=== PATIENT | female | born 1995 | race Asian ===

== ENCOUNTER 2021-02-28 15:20 | Emergency (ER) | payer OTHER ==
[~2021-02-28] VITALS: Ht 149.9 cm; Wt 57.9 kg
[2021-02-28] MEDS ORDERED: FLUORESCEIN OPHTH 1 MG STRIP OU ONE (17:55)
[2021-02-28] MEDS ORDERED: TETRACAINE 0.5% OPHTH SOLN 4ML OU ONE (17:55)
[2021-02-28] MEDS ORDERED: KETOROLAC 0.5% OPHTH SOLN OU ONE (18:40)
[2021-02-28 19:01] VITALS: BP 117/72
== END 2021-02-28 19:03 | disposition home or self-care (01) ==
LOC: M ED 15:20
DX: H53.8 Other visual disturbances (principal); S05.91XA Unspecified injury of right eye and orbit, initial encounter; S05.92XA Unspecified injury of left eye and orbit, initial encounter; X58.XXXA Exposure to other specified factors, initial encounter; Y92.89 Other specified places as the place of occurrence of the external cause

== ENCOUNTER 2021-03-03 10:47 | Emergency (ER) | payer OTHER ==
[~2021-03-03] VITALS: Ht 149.9 cm; Wt 55.0 kg
[2021-03-03] MEDS ORDERED: ONDA4TAB6 PO (13:16)
[2021-03-03 13:30] VITALS: BP 135/91
== END 2021-03-03 13:31 | disposition home or self-care (01) ==
LOC: M ED 10:47
DX: S06.0X0A Concussion without loss of consciousness, initial encounter (principal); X58.XXXA Exposure to other specified factors, initial encounter; Y92.89 Other specified places as the place of occurrence of the external cause; Y93.9 Activity, unspecified; Y99.1 Military activity

== ENCOUNTER 2021-06-14 12:06 | Inpatient (IN) | payer OTHER ==
[~2021-06-14] VITALS: Ht 149.9 cm; Wt 57.3 kg
[2021-06-14] MEDS: SERTRALINE HCL 50 MG TAB PO SCH (09:00)
[~2021-06-14 12:06] MED LIST: ONDA4TAB6 PO
--- OUTSIDE RECORDS SUMMARY | 2021-06-14 12:10 | CCD ---
Author Author [facility] Address Unknown Phone Unavailable Support Name Relationship Address Phone [facility] Next Of Kin [address] [place] [address] Unavailable ABRAM JERNIGAN [place] [address] [place] [address] ABRAM [place]ERN[place] [address] [address] [place] [address] Unavailable Re-disclosure Warning The records that you are about to access may contain information from federally-assisted alcohol or drug abuse programs. If such information is present, then the following federally mandated warning applies: This information has been disclosed to you from records protected by federal confidentiality rules (42 CFR part 2). The federal rules prohibit you from making any further disclosure of this information unless further disclosure is expressly permitted by the written consent of the person to whom it pertains or as otherwise permitted by 42 CFR part 2. A general authorization for the release of medical or other information is NOT sufficient for this purpose. The Federal rules restrict any use of the information to criminally investigate or prosecute any alcohol or drug abuse patient.The records that you are about to access may contain highly sensitive health information, the redisclosure of which is protected by Article 27-F of the [facility] Public Health law. If you continue you may have access to information: Regarding HIV / AIDS; Provided by facilities licensed or operated by the [facility] Office of Mental Health; or Provided by the [facility] Office for People With Developmental Disabilities. If such information is present, then the following [facility] mandated warning applies: This information has been disclosed to you from confidential records which are protected by state law. State law prohibits you from making any further disclosure of this information without the specific written consent of the person to whom it pertains, or as otherwise permitted by law. Any unauthorized further disclosure in violation of state law may result in a fine or care home sentence or both. A general authorization for the release of medical or other information is NOT sufficient authorization for further disc losure. Medications No Information Insurance Providers Payer name Policy type / Coverage type Policy ID Covered green party ID Covered green party's relationship to silva Policy Silva Plan Information [facility] ACTIVE DUTY [id number] Problems, Conditions, and Diagnoses No Information Surgeries/Procedures No Information Results No Information Social History No Information
[2021-06-14] MEDS ORDERED: BCP PO (12:39)
[2021-06-14] MEDS ORDERED: ACETAMINOPHEN TAB 650MG DOSE (2X325MG) PO ONE (13:20)
--- OUTSIDE RECORDS SUMMARY | 2021-06-14 13:39 | CCD ---
Author Author [facility] Address Unknown Phone Unavailable Support Name Relationship Address Phone [facility] Next Of Kin [address] [place] [address] Unavailable ABRAM JERNIGAN Next Of Kin [address] [place] [address] ABRAM [place] [address] [address] [place] [address] Unavailable Re-disclosure Warning The records that you [...] is protected by Article 27-F of the [facility] Public Health law. If you continue you may have access to information: Regarding HIV / AIDS; Provided by facilities licensed or operated by the [facility] Office of Mental Health; or Provided by the [facility] Office for People With Developmental Disabilities. If such information is present, then the following [facility] mandated warning applies: This information has been [...] law may result in a fine or fpc sentence or both. A general authorization for the release of medical or other information is NOT sufficient authorization for further disc losure. Medications No Information Insurance Providers Payer name Policy type / Coverage type Policy ID Covered constitution party ID Covered constitution party's relationship to silva Policy Silva Plan Information [facility] ACTIVE DUTY [id number] Problems, Conditions, and Diagnoses No Information Surgeries/Procedures No Information Results No Information Social History No Information
[2021-06-14 14:04] LABS: HEMOGLOBIN 12.3 g/dl (12.0-15.5); MEAN CORPUSCULAR HEMOGLOBIN 30.8 pg (27.0-33.0); MEAN CORPUSCULAR HGB CONC 33.2 g/dl (32.0-36.5); MEAN CORPUSCULAR VOLUME 92.5 fl (80.0-96.0); PLATELET COUNT, AUTOMATED 307 10^3/uL (150-450); WHITE BLOOD COUNT 8.1 10^3/uL (4.0-10.0)
[2021-06-14 14:34] LABS: HCG, SERUM QUALITATIVE NEGATIVE (NEGATIVE)
[2021-06-14 14:47] LABS: ACETAMINOPHEN LEVEL < 2.0 UG/ML (10.0-30.0); ALBUMIN 3.6 GM/DL (3.2-5.2); ALT/SGPT 21 U/L (12-78); BILIRUBIN,DIRECT 0.1 MG/DL (0.0-0.2); BILIRUBIN,TOTAL 0.4 MG/DL (0.2-1.0); BLOOD UREA NITROGEN 11 MG/DL (7-18); CALCIUM LEVEL 9.3 MG/DL (8.5-10.1); CARBON DIOXIDE LEVEL 25 MEQ/L (21-32); CHLORIDE LEVEL 105 MEQ/L (98-107); CREATININE FOR GFR 0.53 MG/DL (0.55-1.30); ETHYL ALCOHOL (ETHANOL) < 0.003 % (0.000-0.010); GLOMERULAR FILTRATION RATE > 60.0 (>60); GLUCOSE, FASTING 81 MG/DL (70-100); POTASSIUM SERUM 3.6 MEQ/L (3.5-5.1); RSV AMPLIFICATION NEGATIVE (NEGATIVE); SALICYLATE LEVEL < 1.7 MG/DL (5.0-30.0); SODIUM LEVEL 137 MEQ/L (136-145); THYROID STIMULATING HORMONE 0.835 uIU/ML (0.358-3.740); TOTAL PROTEIN 7.3 GM/DL (6.4-8.2)
[2021-06-14 15:35] LABS: AMPHETAMINES LEVEL URINE NEGATIVE (NEGATIVE); BARBITURATES URINE NEGATIVE (NEGATIVE); BENZODIAZEPINES URINE NEGATIVE (NEGATIVE); CANNABINOIDS URINE NEGATIVE (NEGATIVE); COCAINE METABOLITE URINE NEGATIVE (NEGATIVE); METHADONE URINE NEGATIVE (NEGATIVE); OPIATES URINE NEGATIVE (NEGATIVE); PHENCYCLIDINE URINE NEGATIVE (NEGATIVE)
[2021-06-14] MEDS ORDERED: traZODone 50 MG TAB PO PRN (17:00)
[2021-06-14] MEDS ORDERED: MAALOX 30 ML SUSP *UDC PO PRN (17:00)
[2021-06-14] MEDS ORDERED: ACETAMINOPHEN TAB 650MG DOSE (2X325MG) PO PRN (17:00)
[2021-06-14] MEDS ORDERED: MOM 30ML SUSPENSION UDC PO PRN (17:00)
[2021-06-14] MEDS ORDERED: VITAD400CA PO (17:21)
[2021-06-14] MEDS ORDERED: YAZ1TAB PO (17:21)
[2021-06-14] MEDS ORDERED: HOME MED LIST COMPLETE! XX SCH (17:25)
--- OUTSIDE RECORDS SUMMARY | 2021-06-14 17:35 | CCD ---
Author Author [facility] Address Unknown Phone Unavailable Support Name Relationship Address Phone [facility] Next Of Kin [address] [place] [address] Unavailable ABRAM JERNIGAN Next [place] [address] [place] [address] ABRAM JERN[place] [address] [address] [place] [address] Unavailable Re-disclosure Warning The records that you [...] is protected by Article 27-F of the [facility] Public Health law. If you continue you may have access to information: Regarding HIV / AIDS; Provided by facilities licensed or operated by the [facility] Office of Mental Health; or Provided by the [facility] Office for People With Developmental Disabilities. If such information is present, then the following [facility] mandated warning applies: This information has been [...] law may result in a fine or longterm sentence or both. A general authorization for the release of medical or other information is NOT sufficient authorization for further disc losure. Medications No Information Insurance Providers Payer name Policy type / Coverage type Policy ID Covered democrat ID Covered democrat's relationship to silva Policy Silva Plan Information [facility] ACTIVE DUTY [id number] Problems, Conditions, and Diagnoses No Information Surgeries/Procedures No Information Results No Information Social History No Information
[2021-06-14 22:40] VITALS: BP 116/77
[2021-06-15] MEDS: SERTRALINE HCL 50 MG TAB PO SCH (09:23)
[2021-06-15] MEDS ORDERED: hydrOXYzine 25 MG TAB PO PRN (13:00)
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
[2021-06-15] MEDS: LORYNA PO SCH (15:39)
[2021-06-15 16:34] VITALS: BP 124/85
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
[2021-06-16 07:16] VITALS: BP 98/62
[2021-06-16] MEDS: SERTRALINE HCL 50 MG TAB PO SCH (08:29)
[2021-06-16] MEDS: LORYNA PO SCH (08:29)
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
[2021-06-16 15:37] VITALS: BP 110/80
[2021-06-17 06:43] VITALS: BP 102/63
[2021-06-17] MEDS ORDERED: SERT50TA29 PO (07:57)
[2021-06-17] MEDS ORDERED: HYDR-3363 PO (07:57)
[2021-06-17] MEDS: LORYNA PO SCH (08:46)
[2021-06-17] MEDS: SERTRALINE HCL 50 MG TAB PO SCH (08:46)
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
== END 2021-06-17 15:05 | disposition home or self-care (01) | DRG 885 ==
LOC: EDSEX 12:06 → M ED 12:06 → M ED INP 16:57 → M PSY 21:48
PROVIDERS: ADMIT Psychiatry & Neurology Psychiatry; ATTEND Psychiatry & Neurology Psychiatry
DX: F32.0 Major depressive disorder, single episode, mild (principal); R45.851 Suicidal ideations; F41.9 Anxiety disorder, unspecified; F43.10 Post-traumatic stress disorder, unspecified; Z20.822 Contact with and (suspected) exposure to COVID-19; Z91.410 Personal history of adult physical and sexual abuse; Z56.4 Discord with boss and workmates; Z79.3 Long term (current) use of hormonal contraceptives

== ENCOUNTER 2021-06-21 13:34 | Inpatient (IN) | payer OTHER ==
[~2021-06-21] VITALS: Ht 149.9 cm; Wt 56.3 kg
[~2021-06-21 13:34] MED LIST changes: +BCP PO; +HYDR-3363 PO; +SERT50TA29 PO; +VITAD400CA PO; +YAZ1TAB PO
--- OUTSIDE RECORDS SUMMARY | 2021-06-21 13:39 | CCD ---
Author Author [facility] Address Unknown Phone Unavailable Support Name Relationship Address Phone [facility] Next Of Kin [address] [place] [address] Unavailable ABRAM JERNIGAN Next [place] [address] [place] [address] ABRAM JERNIGAN [address] [address] [place] [address] Unavailable Re-disclosure Warning The records that you [...] is protected by Article 27-F of the [facility] Public Health law. If you continue you may have access to information: Regarding HIV / AIDS; Provided by facilities licensed or operated by the [facility] Office of Mental Health; or Provided by the [facility] Office for People With Developmental Disabilities. If such information is present, then the following [facility] mandated warning applies: This information has [...] law may result in a fine or snf sentence or both. A general authorization for the release of medical or other information is NOT sufficient authorization for further disc losure. Medications No Information Insurance Providers Payer name Policy type / Coverage type Policy ID Covered republican ID Covered republican's relationship to silva Policy Silva Plan Information [facility] [id number] Problems, Conditions, and Diagnoses No Information Surgeries/Procedures No Information Results ID Date Data Source [id number] 06/14/2021 01:33:00 PM EDT [facility] Name Value Range Interpretation Code Description Data Rizwana rce(s) Supporting Document(s) SARS coronavirus 2 RNA [Presence] in Res piratory specimen by ALEXANDRO with probe detection NEGATIVE [place] This lab was ordered by [facility] a nd reported by [facility]. Procedure Social History No Information
[2021-06-21] MEDS ORDERED: ACETAMINOPHEN TAB 650MG DOSE (2X325MG) PO ONE (14:00)
[2021-06-21 14:08] LABS: HEMOGLOBIN 13.5 g/dl (12.0-15.5); MEAN CORPUSCULAR HEMOGLOBIN 30.2 pg (27.0-33.0); MEAN CORPUSCULAR HGB CONC 32.9 g/dl (32.0-36.5); MEAN CORPUSCULAR VOLUME 91.7 fl (80.0-96.0); PLATELET COUNT, AUTOMATED 374 10^3/uL (150-450); RED BLOOD COUNT 4.47 10^6/uL (4.00-5.40); WHITE BLOOD COUNT 8.8 10^3/uL (4.0-10.0)
[2021-06-21 15:00] LABS: ACETAMINOPHEN LEVEL < 2.0 UG/ML (10.0-30.0); ALBUMIN 4.1 GM/DL (3.2-5.2); ALT/SGPT 21 U/L (12-78); BILIRUBIN,DIRECT 0.1 MG/DL (0.0-0.2); BILIRUBIN,TOTAL 0.5 MG/DL (0.2-1.0); BLOOD UREA NITROGEN 8 MG/DL (7-18); CALCIUM LEVEL 9.7 MG/DL (8.5-10.1); CARBON DIOXIDE LEVEL 25 MEQ/L (21-32); CHLORIDE LEVEL 104 MEQ/L (98-107); CREATININE FOR GFR 0.62 MG/DL (0.55-1.30); ETHYL ALCOHOL (ETHANOL) 0.005 % (0.000-0.010); GLOMERULAR FILTRATION RATE > 60.0 (>60); GLUCOSE, FASTING 88 MG/DL (70-100); SALICYLATE LEVEL < 1.7 MG/DL (5.0-30.0); SODIUM LEVEL 137 MEQ/L (136-145); THYROID STIMULATING HORMONE 0.907 uIU/ML (0.358-3.740); TOTAL PROTEIN 8.1 GM/DL (6.4-8.2)
[2021-06-21 15:04] LABS: AMPHETAMINES LEVEL URINE NEGATIVE (NEGATIVE); BARBITURATES URINE NEGATIVE (NEGATIVE); BENZODIAZEPINES URINE NEGATIVE (NEGATIVE); CANNABINOIDS URINE NEGATIVE (NEGATIVE); COCAINE METABOLITE URINE NEGATIVE (NEGATIVE); METHADONE URINE NEGATIVE (NEGATIVE); OPIATES URINE NEGATIVE (NEGATIVE); PHENCYCLIDINE URINE NEGATIVE (NEGATIVE)
[2021-06-21 15:08] LABS: HCG, SERUM QUALITATIVE NEGATIVE (NEGATIVE)
[2021-06-21] MEDS ORDERED: MAALOX 30 ML SUSP *UDC PO PRN (16:50)
[2021-06-21] MEDS ORDERED: MOM 30ML SUSPENSION UDC PO PRN (16:50)
[2021-06-21] MEDS ORDERED: ACETAMINOPHEN TAB 650MG DOSE (2X325MG) PO PRN (16:50)
--- OUTSIDE RECORDS SUMMARY | 2021-06-21 16:50 | CCD ---
Author Author [facility] Address Unknown Phone Unavailable Support Name Relationship Address Phone [facility] Next Of Kin [address] [place] [address] Unavailable ABRAM JERNIGAN Next Of [place] [address] [place] [address] ABRAM [place] [address] [address] [place] [address] Unavailable Re-disclosure Warning The records that you [...] is protected by Article 27-F of the [facility] Public Health law. If you continue you may have access to information: Regarding HIV / AIDS; Provided by facilities licensed or operated by the [facility] Office of Mental Health; or Provided by the [facility] Office for People With Developmental Disabilities. If such information is present, then the following [facility] mandated warning applies: This information has [...] law may result in a fine or correction sentence or both. A general authorization for the release of medical or other information is NOT sufficient authorization for further disc losure. Medications No Information Insurance Providers Payer name Policy type / Coverage type Policy ID Covered libertarian ID Covered libertarian's relationship to silva Policy Silva Plan Information [facility] [employer] [id number] Problems, Conditions, and Diagnoses No Information Surgeries/Procedures No Information Results ID Date Data Source [id number] 06/14/2021 01:33:00 PM EDT [facility] Name Value Range Interpretation Code Description Data Rizwana rce(s) Supporting Document(s) SARS coronavirus 2 RNA [Presence] in Res piratory specimen by ALEXANDRO with probe detection NEGATIVE [facility] This lab was ordered by [facility] a nd reported by [facility]. Procedure Social History No Information
[2021-06-21] MEDS ORDERED: SERT50TA29 PO (17:41)
[2021-06-21] MEDS ORDERED: DRIS50003 PO (17:41)
[2021-06-21] MEDS ORDERED: HYDR-3363 PO (17:41)
[2021-06-21] MEDS ORDERED: HOME MED LIST COMPLETE! XX SCH (17:45)
--- OUTSIDE RECORDS SUMMARY | 2021-06-21 17:47 | CCD ---
Author Author [facility] Address Unknown Phone Unavailable Support Name Relationship Address Phone [facility] Next Of Kin [address] [place] [address] Unavailable ABRAM JERNIGAN Next [place] [address] [place] [address] ABRAM JERNIG[place] [address] [place] [address] Unavailable Re-disclosure Warning The records that you [...] is protected by Article 27-F of the [facility] Public Health law. If you continue you may have access to information: Regarding HIV / AIDS; Provided by facilities licensed or operated by the [facility] Office of Mental Health; or Provided by the [facility] Office for People With Developmental Disabilities. If such information is present, then the following [facility] mandated warning applies: This information has [...] law may result in a fine or mcc sentence or both. A general authorization for the release of medical or other information is NOT sufficient authorization for further disc losure. Medications No Information Insurance Providers Payer name Policy type / Coverage type Policy ID Covered green party ID Covered green party's relationship to silva Policy Silva Plan Information [facility] [employer] [id number] Problems, Conditions, and Diagnoses No Information Surgeries/Procedures No Information Results ID Date Data Source [id number] 06/14/2021 01:33:00 PM EDT [facility] Name Value Range Interpretation Code Description Data Rizwana rce(s) Supporting Document(s) SARS coronavirus 2 RNA [Presence] in Res piratory specimen by ALEXANDRO with probe detection NEGATIVE [facility] This lab was ordered by [facility] a nd reported by [facility]. Procedure Social History No Information
[2021-06-21 18:28] LABS: RSV AMPLIFICATION NEGATIVE (NEGATIVE)
[2021-06-21 19:05] VITALS: BP 128/91
[2021-06-21] MEDS: traZODone 50 MG TAB PO PRN (20:49)
[2021-06-22 06:23] VITALS: BP 111/62
[2021-06-22] MEDS ORDERED: SERTRALINE HCL 50 MG TAB PO SCH (09:00)
[2021-06-22] MEDS: LORYNA PO SCH (15:55)
[2021-06-22] MEDS: hydrOXYzine 25 MG TAB PO PRN (17:16)
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
[2021-06-22 18:00] VITALS: BP 130/88
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
[2021-06-22] MEDS: FAMOTIDINE 20 MG TAB PO SCH (21:00)
[2021-06-23 06:29] VITALS: BP 125/83
[2021-06-23] MEDS: FAMOTIDINE 20 MG TAB PO SCH ×3 (09:00→19:33)
[2021-06-23] MEDS: SERTRALINE HCL 25 MG TABLET PO SCH (10:01)
[2021-06-23] MEDS: LORYNA PO SCH (10:02)
[2021-06-23 18:00] VITALS: BP 117/69
[2021-06-23] MEDS: hydrOXYzine 25 MG TAB PO PRN (19:33)
[2021-06-23] MEDS: traZODone 50 MG TAB PO PRN (19:33)
[2021-06-24 06:06] VITALS: BP 120/79
[2021-06-24] MEDS: LORYNA PO SCH (08:07)
[2021-06-24] MEDS: FAMOTIDINE 20 MG TAB PO SCH ×2 (08:08→21:00)
[2021-06-24] MEDS: SERTRALINE HCL 25 MG TABLET PO SCH (08:08)
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
[2021-06-24 19:13] VITALS: BP 115/68
[2021-06-25 06:40] VITALS: BP 132/83
[2021-06-25] MEDS: FAMOTIDINE 20 MG TAB PO SCH ×2 (09:00→21:00)
[2021-06-25] MEDS: LORYNA PO SCH (09:43)
[2021-06-25] MEDS: SERTRALINE HCL 25 MG TABLET PO SCH (09:44)
--- NOTE | 2021-06-25 14:14 | MHIPN ---
[facility] PROGRESS NOTE DATE: 06/24/2021 VITAL SIGNS: Blood pressure 115/68, pulse 66, temperature 98.6. This is a video assessment. She is seen in the presence of staff. She is in the inpatient psychiatry unit. I am at the clinic. She agrees to this evaluation. CHIEF COMPLAINT: Says feels "happy." SUBJECTIVE: Seen for followup. Indicates has been feeling happy today. Says has spoken with her and that that had gone well. Says she slept well. Appetite is improved. Says does not feel suicidal but that she would not want to drive her own car for concerns that she might crash it in order to hurt herself. Says feels safe here in that she does not have to think about work. MENTAL STATUS EXAMINATION: Neat, less guarded. She is cooperative. There is no agitation. No psychomotor retardation. Coherent. No abnormal movements noted. Denies suicidal thoughts or intents at present. No homicidal ideas or intents. No evidence of any psychosis. Cognition is grossly intact. Judgment and insight possibly improved. ASSESSMENT: 1. Posttraumatic stress disorder. 2. Major depressive disorder, single episode, severe. Feels more confident, less depressed, less intent on hurting herself. PLAN: Continue Zoloft 75 mg daily. Tolerates the increase, though does say may have felt a bit more tired. Continue current precautions and observations and encourage her in participating in activities in the unit. Should current progress continue, may need to consider discharge shortly. She will be seen by on-call psychiatry on the weekend (today is Sunday) and on Sunday by the assigned clinician. She is aware that further recommendations will be made depending on how she is doing. The assessment took 15 minutes.
--- NOTE | 2021-06-25 18:37 | MHIPN ---
[facility] PROGRESS NOTE DATE: 06/25/2021 The patient today states, "I'm feeling better today." She says she is not suicidal. Says she slept good. MENTAL STATUS EXAMINATION: She is alert and oriented times three. Eye contact is fair. Pleasant and cooperative. Verbally spontaneous. There is no formal thought disorder noted. Mood is "better." Affect is constricted but appropriate. There is no formal thought disorder noted. She denies suicidal or homicidal ideation. Concentration and memory are good. Insight and judgment are fair. DIAGNOSES: 1. Major depressive disorder, single episode, severe. 2. Posttraumatic stress disorder. TREATMENT PLAN: We will continue to monitor the patient for further elevation and stabilization of her mood and we will titrate medications as indicated.
[2021-06-25 18:38] VITALS: BP 116/80
[2021-06-26 06:53] VITALS: BP 116/77
[2021-06-26] MEDS: FAMOTIDINE 20 MG TAB PO SCH ×2 (08:33→21:00)
[2021-06-26] MEDS: LORYNA PO SCH (08:34)
[2021-06-26] MEDS: hydrOXYzine 25 MG TAB PO PRN ×2 (08:35→22:09)
[2021-06-26] MEDS: SERTRALINE HCL 25 MG TABLET PO SCH (08:35)
[2021-06-26 18:18] VITALS: BP 127/82
[2021-06-27 06:28] VITALS: BP 111/59
[2021-06-27] MEDS: LORYNA PO SCH (09:09)
[2021-06-27] MEDS: FAMOTIDINE 20 MG TAB PO SCH (09:09)
[2021-06-27] MEDS: SERTRALINE HCL 25 MG TABLET PO SCH (09:09)
[2021-06-27] MEDS ORDERED: FAMO20TA PO (09:18)
[2021-06-27] MEDS ORDERED: SERT25TA21 PO (09:18)
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
[2021-06-27] MEDS: hydrOXYzine 25 MG TAB PO PRN (11:54)
== END 2021-06-27 12:15 | disposition home or self-care (01) | DRG 885 ==
LOC: M ED 13:34 → M ED INP 16:47 → M PSY 18:48
PROVIDERS: ADMIT Student in an Organized Health Care Education/Training Program; ATTEND Psychiatry & Neurology Psychiatry
DX: F32.2 Major depressive disorder, single episode, severe without psychotic features (principal); R45.851 Suicidal ideations; F43.10 Post-traumatic stress disorder, unspecified; H93.13 Tinnitus, bilateral; G25.0 Essential tremor; Z20.822 Contact with and (suspected) exposure to COVID-19; Z79.899 Other long term (current) drug therapy; R20.0 Anesthesia of skin

== ENCOUNTER 2021-07-18 12:50 | Emergency (ER) | payer OTHER ==
[~2021-07-18] VITALS: Ht 149.9 cm; Wt 57.8 kg
[~2021-07-18 12:50] MED LIST changes: +DRIS50003 PO; +FAMO20TA PO; +SERT25TA21 PO
[2021-07-18] MEDS ORDERED: TRAZ-252 PO (12:59)
[2021-07-18 14:08] LABS: HCG, SERUM QUALITATIVE NEGATIVE (NEGATIVE)
[2021-07-18 14:18] LABS: BASO # 0.1 10^3/uL (0.0-0.2); BASO % 0.7 % (0.0-1.0); EOS # 0.1 10^3/uL (0.0-0.5); EOS % 0.9 % (0.0-3.0); HEMOGLOBIN 11.4 g/dl (12.0-15.5); LYMPH # 2.5 10^3/uL (1.5-5.0); LYMPH % 36.2 % (24.0-44.0); MEAN CORPUSCULAR HEMOGLOBIN 30.6 pg (27.0-33.0); MEAN CORPUSCULAR HGB CONC 33.5 g/dl (32.0-36.5); MEAN CORPUSCULAR VOLUME 91.4 fl (80.0-96.0); MONO # 0.5 10^3/uL (0.0-0.8); MONO % 6.8 % (2.0-8.0); NEUTROPHILS # 3.8 10^3/uL (1.5-8.5); PLATELET COUNT, AUTOMATED 263 10^3/uL (150-450); RED BLOOD COUNT 3.72 10^6/uL (4.00-5.40); WHITE BLOOD COUNT 6.9 10^3/uL (4.0-10.0)
[2021-07-18 14:18] LABS: ACETAMINOPHEN LEVEL < 2.0 UG/ML (10.0-30.0); ALBUMIN 3.3 GM/DL (3.2-5.2); ALT/SGPT 33 U/L (12-78); BILIRUBIN,DIRECT 0.1 MG/DL (0.0-0.2); BILIRUBIN,TOTAL 0.3 MG/DL (0.2-1.0); BLOOD UREA NITROGEN 7 MG/DL (7-18); CALCIUM LEVEL 8.8 MG/DL (8.5-10.1); CARBON DIOXIDE LEVEL 24 MEQ/L (21-32); CHLORIDE LEVEL 106 MEQ/L (98-107); CREATININE FOR GFR 0.49 MG/DL (0.55-1.30); ETHYL ALCOHOL (ETHANOL) < 0.003 % (0.000-0.010); GLOMERULAR FILTRATION RATE > 60.0 (>60); GLUCOSE, FASTING 94 MG/DL (70-100); POTASSIUM SERUM 4.2 MEQ/L (3.5-5.1); SALICYLATE LEVEL < 1.7 MG/DL (5.0-30.0); SODIUM LEVEL 138 MEQ/L (136-145); TOTAL PROTEIN 7.1 GM/DL (6.4-8.2)
[2021-07-18 14:47] LABS: AMPHETAMINES LEVEL URINE NEGATIVE (NEGATIVE); BARBITURATES URINE NEGATIVE (NEGATIVE); BENZODIAZEPINES URINE NEGATIVE (NEGATIVE); CANNABINOIDS URINE NEGATIVE (NEGATIVE); COCAINE METABOLITE URINE NEGATIVE (NEGATIVE); METHADONE URINE NEGATIVE (NEGATIVE); OPIATES URINE NEGATIVE (NEGATIVE); PHENCYCLIDINE URINE NEGATIVE (NEGATIVE)
[2021-07-18 15:41] LABS: RSV AMPLIFICATION NEGATIVE (NEGATIVE)
[2021-07-19 06:09] VITALS: BP 115/73
== END 2021-07-19 06:30 ==
LOC: M ED 12:50
DX: F33.9 Major depressive disorder, recurrent, unspecified (principal); T50.992A Poisoning by other drugs, medicaments and biological substances, intentional self-harm, initial encounter; Y92.89 Other specified places as the place of occurrence of the external cause; Z79.899 Other long term (current) drug therapy; Z79.3 Long term (current) use of hormonal contraceptives

== ENCOUNTER 2021-10-26 14:52 | Emergency (ER) | payer OTHER ==
[~2021-10-26 14:52] MED LIST changes: +TRAZ-252 PO
[2021-10-26 15:39] VITALS: BP 135/72
[2021-10-26] MEDS ORDERED: risperiDONE 0.5 MG TAB PO ONE (17:25)
== END 2021-10-26 18:26 | disposition home or self-care (01) ==
LOC: M ED 14:52
DX: F33.9 Major depressive disorder, recurrent, unspecified (principal); Z79.899 Other long term (current) drug therapy; Z79.3 Long term (current) use of hormonal contraceptives

== ENCOUNTER → 2021-11-07 | Outpatient (CLI) | payer OTHER ==
[~2021-11-07] MED LIST changes: +ISOVUE-300 61% 50ML VIAL As Ordered ONE; +LIDOCAINE 1% MDV 20ML VIAL As Ordered ONE; +PROHANCE 279.3MG/ML 5ML VIAL As Ordered ONE
== END ==
LOC: M RADPRO 06:34
PROVIDERS: ATTEND Surgery
DX: M25.551 Pain in right hip (principal)
CPT/HCPCS: 27093; 73723; 77002; A9576; Q9967

== ENCOUNTER → 2022-01-17 | Outpatient (REF) ==
[~2022-01-17] MED LIST changes: -ISOVUE-300 61% 50ML VIAL As Ordered ONE; -LIDOCAINE 1% MDV 20ML VIAL As Ordered ONE; -PROHANCE 279.3MG/ML 5ML VIAL As Ordered ONE
== END ==
LOC: M PLAIMG 08:25
PROVIDERS: ATTEND Internal Medicine
DX: G80.9 Cerebral palsy, unspecified (principal)